=== PATIENT | female | born 1965 | race Caucasian/White ===

== ENCOUNTER → 2016-05-22 | Outpatient (CLI) | payer OTHER ==
--- NOTE | 2016-05-22 11:16 | DX ---
Left thumb 3 views History: Follow up fracture. Comparison: Left thumb April 24, 2016. Findings: There is slight increase in conspicuity of a transverse, comminuted, minimally displaced fr acture through the base of the distal phalanx of the thumb with intraarticular extension. There is no appreciable callus formation. On the lateral view, a small osseous fragment is noted to be displaced from the trapezium, consistent with a minimally displaced fracture rather than an erosion. This is n ot significantly changed in position on the AP view. There is a geographic lucency in the head of the middle phalanx of the index finger. Impressions 1. Increased conspicuity of a minimally displaced, comminuted intraarticular fracture through the bas e of distal phalanx which could be related to resorption or increased displacement. 2. Minimally displaced fracture at the radial aspect of the trapezium, better visualized on today's s tudy due to projection, with no significant change. Message left with Bethanie Burns today (May 22, 2016), at 1106 hours.
== END ==
LOC: BMCIMAGING 10:27
PROVIDERS: ATTEND Physician Assistant Medical
DX: S62.522A Displaced fracture of distal phalanx of left thumb, initial encounter for closed fracture (principal); S62.172A Displaced fracture of trapezium [larger multangular], left wrist, initial encounter for closed fracture

== ENCOUNTER → 2017-06-10 | Outpatient (CLI) | payer OTHER | LOC: BMCIMAGING 11:42 | PROVIDERS: ATTEND Physician Assistant | DX: M25.551 Pain in right hip (principal) ==

== ENCOUNTER → 2018-02-10 | Outpatient (CLI) | payer OTHER | LOC: FIMAGING 16:05 | PROVIDERS: ATTEND Physician Assistant Medical | DX: H93.A1 Pulsatile tinnitus, right ear (principal); R09.89 Other specified symptoms and signs involving the circulatory and respiratory systems ==